=== PATIENT | female | born 1995 | race Caucasian/White ===

== ENCOUNTER 2018-01-19 14:29 | Emergency (ER) | payer OTHER ==
[~2018-01-19] VITALS: Ht 160 cm; Wt 83.2 kg
[2018-01-19] MEDS ORDERED: BENZ100A PO (16:21)
[2018-01-19] MEDS ORDERED: Prednisone20 MG PO (16:21)
== END 2018-01-19 16:29 | disposition home or self-care (01) ==
LOC: ER 14:29
DX: J40 Bronchitis, not specified as acute or chronic (principal); Z88.5 Allergy status to narcotic agent
CPT/HCPCS: 71046; 99283